=== PATIENT | female | born 1990 | race Caucasian/White ===

== ENCOUNTER 2017-01-29 12:38 | Emergency (ER) | payer MEDICAID ==
[2017-01-29 12:49] VITALS: BP 136/80
[2017-01-29] MEDS ORDERED: Bacitracin Oint 1 GM U/D Packet TOP ONE (13:07)
--- NOTE | 2017-01-29 13:08 | EDM.PDOC ---
ED HPI GENERAL MEDICAL PROBLEM - General Chief Complaint: Laceration Stated Complaint: CUT LT POINTER FINGER Time Seen by Provider: 01/29/17 13:00 Source of Information: Reports: Patient History Limitations: Reports: No Limitations - History of Present Illness INITIAL COMMENTS - FREE TEXT/NARRATIVE: 27-year-old female arrives with a laceration to the palmar surface of her index finger of the left hand. She cut it with a knife while doing dishes. 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: Endocrine/Metabolic History: Reports: Diabetes, Gestational - Past Surgical History GI Surgical History: Reports: Cholecystectomy Female Surgical History: Reports: Section Social & Family History - Tobacco Use Smoking Status *Q: Former Smoker Years of Tobacco use: 6 Used Tobacco, but Quit: Yes Month Tobacco Last Used: 2012 Second Hand Smoke Exposure: No - Caffeine Use Caffeine Use: Reports: None - Alcohol Use Days Per Week of Alcohol Use: 0 - Recreational Drug Use Recreational Drug Use: No ED ROS GENERAL - Review of Systems Review Of Systems: See Below Constitutional: Denies: Fever Respiratory: Denies: Shortness of Breath GI/Abdominal: Denies: Nausea, Vomiting Neurological: Reports: No Symptoms Psychiatric: Reports: No Symptoms ED EXAM, SKIN/RASH Exam: See Below Exam Limited By: No Limitations General Appearance: Alert, No Apparent Distress Respiratory/Chest: No Respiratory Distress Extremities: Other (Exam is otherwise limited to left hand. The patient has a 2 cm transverse laceration over the middle phalange palmar surface of the index finger. She has full range of motion of the finger and no distal paresthesia) Course - Vital Signs Last Recorded V/S: Last Vital Signs Temp 99.0 F 01/29/17 12:47 Pulse 103 H 01/29/17 12:47 Resp 16 01/29/17 12:47 BP 136/80 01/29/17 12:47 Pulse Ox 97 01/29/17 12:47 - Orders/Labs/Meds Orders: Active Orders 24 hr Category Date Time Status Vaccines to be Administered [RC] PER UNIT ROUTINE Care 01/29/17 13:38 Active Meds: Medications Discontinued Medications Generic Name Dose Route Start Last Admin Trade Name Bjorn PRN Reason Stop Dose Admin Bacitracin 1 dose 01/29/17 13:07 01/29/17 13:27 Bacitracin Oint 1 Gm TOP 01/29/17 13:08 1 dose ONETIME ONE Administration Diphtheria/Tetanus/Acell Pertussis 0.5 ml 01/29/17 13:38 01/29/17 13:44 Adacel IM 01/29/17 13:39 0.5 ml .ONCE ONE Administration Lidocaine HCl 5 ml 01/29/17 13:06 01/29/17 13:27 Xylocaine-Mpf 1% INJECT 01/29/17 13:07 5 ml ONETIME ONE Administration - Re-Assessments/Exams Free Text/Narrative Re-Assessment/Exam: 01/29/17 13:23 The laceration was cleansed thoroughly with saline after 1% lidocaine was used to anesthetize the area. 3 5-0 Ethilon sutures were used to close the laceration. Topical bacitracin was applied, a Band-Aid, and the patient will keep the wound covered and clean while healing. Stitches can be removed in 7 days. Departure - Departure Time of Disposition: 13:47 Disposition: Home, Self-Care 01 Condition: Good Clinical Impression: Finger laceration Qualifiers: Encounter type: initial encounter Finger: index finger Damage to nail status: without damage Foreign body presence: without foreign body Laterality: left Qualified Code(s): S61.211A - Laceration without foreign body of left index finger without damage to nail, initial encounter - Discharge Information Instructions: Laceration Care, Adult, [id number] Referrals: Ina Parada PA [Primary Care Provider] - Forms: ED Department Discharge Care Plan Goals: Keep the wound covered and clean while healing. Stitches can be removed next Wednesday, in 7 days. Recheck sooner if concerns of infection or not healing satisfactorily. - My Orders Last 24 Hours: My Active Orders 01/29/17 13:38 Vaccines to be Administered [RC] PER UNIT ROUTINE - Assessment/Plan Last 24 Hours: My Active Orders 01/29/17 13:38 Vaccines to be Administered [RC] PER UNIT ROUTINE
[2017-01-29] MEDS ORDERED: Diphtheria,Pertussis(Acell),Tetanus Vaccine 0.5 ML SDV IM ONE (13:38)
== END 2017-01-29 13:47 | disposition home or self-care (01) ==
LOC: JP.ED 12:38
DX: S61.211A Laceration without foreign body of left index finger without damage to nail, initial encounter (principal); Z87.440 Personal history of urinary (tract) infections; Z23 Encounter for immunization; Z90.49 Acquired absence of other specified parts of digestive tract; Z87.891 Personal history of nicotine dependence; W26.0XXA Contact with knife, initial encounter
CPT/HCPCS: 12001; 90471; 90715; 99282-25